=== PATIENT | male | born 1985 | race Caucasian/White ===

== ENCOUNTER 2021-03-12 13:31 | Emergency (ER) | payer BC, OTHER ==
--- NOTE | 2021-03-12 13:33 | EDM.PDOC ---
ED HPI GENERAL MEDICAL PROBLEM - General Chief Complaint: Trauma Stated Complaint: FALL OFF TRACTOR-YESTERDAY Time Seen by Provider: 03/12/21 13:32 Source of Information: Reports: Patient, Family History Limitations: Reports: No Limitations - History of Present Illness INITIAL COMMENTS - FREE TEXT/NARRATIVE: Shashank, 35-year-old male, presents via private vehicle ambulatory to the emergency department today after experiencing a fall off the rear wheel of his tractor. This occurred yesterday afternoon 11 March 2021, while he was working on the tractor having to change parts on the air conditioning mounted on the roof of the cab. He had removed surface area of this standing on the tire to which he had placed a stepladder. As he was coming off the tire stepping onto the ladder it slid on the ground causing him to drop from roughly 6 feet onto his buttocks/right hip. Immediate pain and nausea developed. He was able to summon help via his cell phone to which family member arrived to transport him home. He denies any change in bowel or bladder although he has not had a bowel movement yet today but no urinary changes since then. He has thoracolumbar spine pain with tenderness increasing to motion as well as right hip pelvic pain radiating outward from the posterior pelvis to the hip. He is ambulatory but states it hurts to move to the right side as well as any positioning supine or seated tends to hurt the lumbar spine region. He states when arising from supine positioning he feels a pulling in the lower abdomen pelvic muscles but denies any bulging or issues when not moving. Denies any exposures or risk factors otherwise Onset Date: 03/11/21 Duration: Hour(s):, Getting Worse Quality: Reports: Ache, Sharp Severity: Moderate Improves with: Reports: None Worsens with: Reports: Movement Context: Reports: Activity, Trauma Associated Symptoms: Reports: No Other Symptoms Treatments ATTENDING PATHOLOGIST: Reports: Cold Therapy Right Hip Pain Score (Numeric/FACES): 5 Right Shoulder Pain Score (Numeric/FACES): 5 Right Abdomen Pain Score (Numeric/FACES): 5 - Related Data Allergies Allergy/AdvReac Type Severity Reaction Status Date / Time No Known Allergies Allergy Verified 03/12/21 13:39 Home Meds: Home Meds Cyclobenzaprine HCl 10 mg PO TID 7 Days #21 tablet 03/12/21 [Rx] Hydrocodone/Acetaminophen [HYDROcodone-Acetaminophen 5-325 MG] 2 each PO Q4HR PRN 6 Days #30 tab 03/12/21 [Rx] Past Medical History HEENT History: Reports: None Cardiovascular History: Reports: None Respiratory History: Reports: None Gastrointestinal History: Reports: None Genitourinary History: Reports: None Musculoskeletal History: Reports: Fracture (Right tibia) Neurological History: Reports: None Psychiatric History: Reports: None Endocrine/Metabolic History: Reports: None Hematologic History: Reports: None Immunologic History: Reports: None Oncologic (Cancer) History: Reports: None Dermatologic History: Reports: None - Past Surgical History Head Surgeries/Procedures: Reports: None HEENT Surgical History: Reports: None Cardiovascular Surgical History: Reports: None Respiratory Surgical History: Reports: None GI Surgical History: Reports: None Male Surgical History: Reports: None Endocrine Surgical History: Reports: None Musculoskeletal Surgical History: Reports: Other (See Below) Other Musculoskeletal Surgeries/Procedures:: Left foot congenital defects, fusion. Right leg fracture ORIF - Past Imaging History Past Imaging History: Reports: Xray Social & Family History - Family History Family Medical History: No Pertinent Family History ED ROS GENERAL - Review of Systems Review Of Systems: Comprehensive ROS is negative, except as noted in HPI. ED EXAM, GENERAL - Physical Exam Exam: See Below Free Text/Narrative:: Alert, oriented, in no acute evidence of toxic distress. HEENT is negative discharge or deformity with no cyanosis nor pallor noted. Neck is soft supple no lymphadenopathy or tenderness noted to palpation with no rigidity. Thorax is clear throughout no wheezes no crackles. Cardiac S1 is 2 with no noted murmur. Abdomen is rotund has musculature pain in the lower abdomen pelvic region with no rebound tenderness. There is tenderness in the lower cervical/lumbar junction of the spinal process. There is tenderness to the right hip and pelvis region lateral and posterior. When raising from supine to seated position feels a pulling in the lower abdomen pelvic region. He is able to ambulate has no deficits to the lower extremities other than what would be attributed to his stiffness and pain of the lumbar sacral right hip region. There is no deficits to the upper extremities nor in the thorax cervical or head region. Course - Vital Signs Last Recorded V/S: Last Vital Signs Temp 98.0 F 03/12/21 13:35 Pulse 68 03/12/21 15:30 Resp 18 03/12/21 15:30 BP 123/57 L 03/12/21 15:30 Pulse Ox 96 03/12/21 15:30 - Orders/Labs/Meds Orders: Active Orders 24 hr Category Date Time Status Cyclobenzaprine [Flexeril] Med 03/12/21 21:00 Active 10 mg PO TID Medication Orders Cyclobenzaprine HCl (Cyclobenzaprine 10 Mg Tab) 10 mg PO TID ELENI Labs: Laboratory Tests 03/12/21 03/12/21 03/12/21 Range/Units 13:45 13:46 13:50 WBC 8.97 (5.00-10.00) 10^3/uL RBC 5.46 (4.50-6.00) 10^6/uL Hgb 15.5 (13.0-17.0) g/dL Hct 46.8 (40.0-52.0) % MCV 85.7 (82.0-92.0) fL MCH 28.4 (27.0-31.0) pg MCHC 33.1 (32.0-36.0) g/dL RDW 13.1 (11.5-14.5) % Plt Count 260 (150-400) 10^3/uL MPV 10.5 H (7.4-10.4) fL Immature Gran % (Auto) 0.2 (0.0-5.0) % Neut % (Auto) 75.4 H (50.0-70.0) % Lymph % (Auto) 16.6 L (20.0-40.0) % Banner % (Auto) 5.5 (2.0-8.0) % Eos % (Auto) 1.9 (1.0-3.0) % Baso % (Auto) 0.4 (0.0-1.0) % Neut # (Auto) 6.76 (2.50-7.00) 10^3/uL Lymph # (Auto) 1.49 (1.00-4.00) 10^3/uL Banner # (Auto) 0.49 (0.10-0.80) 10^3/uL Eos # (Auto) 0.17 (0.10-0.30) 10^3/uL Baso # (Auto) 0.04 (0.00-0.10) 10^3/uL Immature Gran # (Auto) 0.02 (0.00-0.50) 10^3/uL Sodium 139 (136-145) mmol/L Potassium 4.2 (3.5-5.1) mmol/L Chloride 104 (98-107) mmol/L Carbon Dioxide 23.7 (21.0-32.0) mmol/L Anion Gap 15.5 H (5-15) mmol/L BUN 11 (7-18) mg/dL Creatinine 0.87 (0.51-1.17) mg/dL Est Cr Clr Drug Dosing 127.60 mL/min Estimated GFR (MDRD) > 60 mL/min Glucose 116 (70-140) mg/dL Calcium 8.2 L (8.7-10.3) mg/dL Specimen Type Urincc Urine Color Yellow (YELLOW) Urine Appearance Clear (CLEAR) Urine pH 5.5 (5.0-9.0) Ur Specific [place] 1.025 (1.005-1.030) Urine Protein Negative (NEGATIVE) mg/dL Urine Glucose (UA) Negative (NEGATIVE) mg/dL Urine Ketones Negative (NEGATIVE) mg/dL Urine Occult Blood Negative (NEGATIVE) Urine Nitrite Negative (NEGATIVE) Urine Bilirubin Negative (NEGATIVE) Urine Urobilinogen 0.2 (0.2-1.0) E.U./dL Ur Leukocyte Esterase Negative (NEGATIVE) Meds: Medications Generic Name Dose Route Start Last Admin Trade Name Freq PRN Reason Stop Dose Admin Cyclobenzaprine HCl 10 mg 03/12/21 21:00 Cyclobenzaprine 10 Mg Tab PO TID ELENI Discontinued Medications Generic Name Dose Route Start Last Admin Trade Name Freq PRN Reason Stop Dose Admin Hydrocodone Bitart/Acetaminophen 16 tab 03/12/21 16:27 03/12/21 16:56 Acetaminophen/Hydrocodone 325-10 Mg Tab PO 03/12/21 16:28 16 tab ONETIME ONE Administration Cyclobenzaprine HCl 10 mg 03/12/21 21:00 Cyclobenzaprine 10 Mg Tab PO TID [facility] Cyclobenzaprine HCl 50 mg 03/12/21 16:47 03/12/21 16:54 Cyclobenzaprine 10 Mg Tab PO 03/12/21 16:48 50 mg ONETIME ONE Administration - Re-Assessments/Exams Free Text/Narrative Re-Assessment/Exam: 03/12/21 15:08 L2 fracture of the vertebral body corner suggested. Discussed with patient will obtain a CT of the lumbar spine today to determine the extent and if emergent consult is needed. [facility] is his hospital of choice. Departure - Departure Time of Disposition: 16:26 Disposition: Home, Self-Care 01 Condition: Good Clinical Impression: Closed L2 vertebral fracture Qualifiers: Encounter type: initial encounter Fracture morphology: other fracture Qualified Code(s): S32.028A - Other fracture of second lumbar vertebra, initial encounter for closed fracture Compression fracture of second lumbar vertebra Qualifiers: Encounter type: initial encounter Qualified Code(s): S32.020A - Wedge compression fracture of second lumbar vertebra, initial encounter for closed fracture - Discharge Information *PRESCRIPTION DRUG MONITORING PROGRAM REVIEWED*: Not Applicable *COPY OF PRESCRIPTION DRUG MONITORING REPORT IN PATIENT SAGAR: Not Applicable Prescriptions: Cyclobenzaprine HCl 10 mg PO TID 7 Days #21 tablet Hydrocodone/Acetaminophen [HYDROcodone-Acetaminophen 5-325 MG] 2 each PO Q4HR PRN 6 Days #30 tab PRN Reason: Pain (Moderate 4-6) Referrals: PCP,None [Primary Care Provider] - Forms: ED Department Discharge Additional Instructions: Call Dr Machuca's office at [facility] for a follow-up appointment in 1 week. Avoid activity and positioning that worsens your pain. You may continue with heat or ice to the area for comfort. Hydrocodone will be prescribed at the local pharmacy. Also be given a muscle relaxer. You will be provided pills here in the emergency department to last you until the pharmacy opens on Sunday. Follow-up as needed or as scheduled with orthopedic services at [facility]. Return to the emergency department if symptoms worsen or concerns develop. Sepsis Event Note (ED) - Focused Exam Vital Signs: Vital Signs Temp Pulse Resp BP Pulse Ox 03/12/21 15:30 68 18 123/57 L 96 03/12/21 14:00 72 16 137/85 96 03/12/21 13:35 98.0 F 80 20 123/69 98 - Problem List & Annotations (1) Fall SNOMED Code(s): 2631127, 674665487 Code(s): W19.XXXA - UNSPECIFIED FALL, INITIAL ENCOUNTER Status: Acute Priority: High Current Visit: Yes Qualifiers: Encounter type: initial encounter Qualified Code(s): W19.XXXA - Unspecified fall, initial encounter (2) Hip pain, right SNOMED Code(s): 55481217 Code(s): M25.551 - PAIN IN RIGHT HIP Status: Acute Priority: High Current Visit: Yes (3) Thoracolumbar back pain SNOMED Code(s): 031922100 Code(s): M54.5 - LOW BACK PAIN; M54.6 - PAIN IN THORACIC SPINE Status: Acute Priority: High Current Visit: Yes (4) Compression fracture of second lumbar vertebra SNOMED Code(s): 48294515117958156 Code(s): S32.020A - WEDGE COMPRESSION FRACTURE OF SECOND LUMBAR VERTEBRA, INIT Status: Acute Current Visit: Yes Qualifiers: Encounter type: initial encounter Qualified Code(s): S32.020A - Wedge compression fracture of second lumbar vertebra, initial encounter for closed fracture (5) Closed L2 vertebral fracture SNOMED Code(s): 79711483226536099 Code(s): S32.029A - UNSP FRACTURE OF SECOND LUMBAR VERTEBRA, INIT FOR CLOS FX Status: Acute Current Visit: Yes Qualifiers: Encounter type: initial encounter Fracture morphology: other fracture Qualified Code(s): S32.028A - Other fracture of second lumbar vertebra, initial encounter for closed fracture - Problem List Review Problem List Initiated/Reviewed/Updated: Yes - My Orders Last 24 Hours: My Active Orders 03/12/21 21:00 Cyclobenzaprine [Flexeril] 10 mg PO TID - Assessment/Plan Last 24 Hours: My Active Orders 03/12/21 21:00 Cyclobenzaprine [Flexeril] 10 mg PO TID Plan: Call Dr Machuca's office at [facility] for a follow-up appointment in 1 week. Avoid activity and positioning that worsens your pain. You may continue with heat or ice to the area for comfort. Hydrocodone will be prescribed at the local pharmacy. Also be given a muscle relaxer. You will be provided pills here in the emergency department to last you until the pharmacy opens on Sunday. Follow-up as needed or as scheduled with orthopedic services at [facility]. Return to the emergency department if symptoms worsen or concerns develop.
[2021-03-12 14:14] LABS: ANION GAP 15.5 mmol/L (5-15); CHLORIDE,CL 104 mmol/L (98-107); SODIUM,NA 139 mmol/L (136-145)
--- NOTE | 2021-03-12 14:54 | CR ---
[id number] RAD/RAD Pelvis 1V W 2V Right Hip EXAM: RAD Pelvis 1V W 2V Right Hip INDICATION: FELL 6 FEET ONTO BUTTOCKS PELVIS. COMPARISON: None. DISCUSSION: The hips and sacroiliac joints are normal in appearance. No acute fracture or dislocation is identified. IMPRESSION: 1. Negative exam. Smooth Pedroza MD 03/12/21 [id number] Thank you for allowing us to participate in the care of your patient.
--- NOTE | 2021-03-12 14:56 | CR ---
[id number] RAD/RAD Lumbar Spine 2-3V EXAM: RAD Lumbar Spine 2-3V INDICATION: FELL 6 FEET ONTO BUTTOCKS, PELVIS. COMPARISON: None. DISCUSSION: A mildly displaced fracture suggested off the anterior superior corner of the L1-L2 vertebral body. No other fracture is identified. The vertebral bodies are normal in height and alignment. Mild to moderate disc degeneration L4-L5 and L5-S1 with milder changes at the remaining disc levels. IMPRESSION: 1. A small acute anterior superior L2 vertebral body corner fracture is suggested. Smooth Pedroza MD 03/12/21 [id number] Thank you for allowing us to participate in the care of your patient.
--- NOTE | 2021-03-12 16:02 | CT ---
[id number] CT/CT Lumbar Spine WO IV EXAM: NONCONTRAST LUMBAR SPINE CT INDICATION: ANT/SUP L2 VERTEBRAL FRACTURE. COMPARISON: None. DISCUSSION: There is a mild superior endplate compression fracture at L2 with a small displaced fragment off the anterior superior corner which is distracted/displaced up to 3 mm. Mild irregularity of the superior endplate at L1, favor Schmorl's node. No other definite fracture. No subluxation. Moderate disc degeneration at L5-S1 with milder changes at the remaining lumbar levels. The paraspinal soft tissues are unremarkable. IMPRESSION: 1. Mild acute compression fracture at the superior endplate of L2 with a small displaced/distracted fragment off the anterior superior corner. No retropulsed fragments or extension into the posterior elements. Smooth Pedrzoa MD 03/12/21 [phone] Thank you for allowing us to participate in the care of your patient.
[2021-03-12] MEDS ORDERED: Acetaminophen/HYDROcodone 325-10 MG Tab PO ONE (16:27)
[2021-03-12] MEDS ORDERED: Cyclobenzaprine 10 MG Tab PO ONE (16:47)
[2021-03-12] MEDS ORDERED: Cyclobenzaprine 10 MG Tab PO SCH ×2 (21:00)
== END 2021-03-12 17:20 | disposition home or self-care (01) ==
LOC: KA.ED 13:31
DX: S32.020A Wedge compression fracture of second lumbar vertebra, initial encounter for closed fracture (principal); S32.028A Other fracture of second lumbar vertebra, initial encounter for closed fracture; W11.XXXA Fall on and from ladder, initial encounter; Y99.0 Civilian activity done for income or pay
CPT/HCPCS: 36415; 72100; 72131; 80048; 81003; 85025; 99283; 99284-25; A9270-GY